=== PATIENT | female | born 1955 | race African-American/Black ===

== ENCOUNTER 2017-04-21 15:07 | Emergency (ER) | payer MEDICARE, OTHER ==
[~2017-04-21] VITALS: Ht 167.6 cm; Wt 62.6 kg
[~2017-04-21 15:07] MED LIST: CATAPRES0.1 MG PO; COMBIVENT RESPIM4 GM IH; DILAUDID2 MG ORAL; IBUPROFEN600 MG ORAL; KADIAN20 MG PO; KADIAN50 MG PO; PREMARIN0.3 MG PO; ROBAXIN-750750 MG PO; SOMA350 MG PO; TRIAMTERENE-HC1 EAC7 ORAL; VALIUM5 MG ORAL; VICODIN ES 7.51 EACH PO; WATER PILL PO; ZESTRIL20 MG PO
[2017-04-21] MEDS ORDERED: Norco 5mg/325mg tab ORAL ONE (15:45)
--- NOTE | 2017-04-21 16:09 | Diagnostic Imaging Report ---
Indication: Chest pain Comparison: None Findings: There is an apparent fracture of the upper sternum. This is probably subacute in age as there is is periosteal new bone present. This is only seen on the lateral view. Impression: Suspected subacute to chronic fracture of the upper sternum.
--- NOTE | 2017-04-21 17:09 | Emergency Room Report ---
History of Present Illness General Chief Complaint: Pain Present Illness HPI 61-year-old female presents to the emergency department complaining of 9/10 in severity sternal pain x1 month. Patient states that she fell and landed directly on her sternum approximately one month ago and has had progressive pain since. Patient reports tenderness denies bruising or deformity. Patient denies past medical history. Patient reports taking a deep breath causes pain. Denies CP, Palpitations, LOC, AMS, dizziness, Changes in Vision, Sensation, paresthesias, or a sudden severe headache. Allergies: Coded Allergies: IODINE (Verified Allergy, Severe, Hives, 08/23/12) IV contrast Patient History Past Medical History: see triage record, COPD Past Surgical History: none Pertinent Family History: none Now: No Immunizations: UTD Reviewed Nursing Documentation: PMH: Agreed, PSxH: Agreed Nursing Documentation-PMH Hx Cardiac Problems: Yes Hx Hypertension: Yes Hx COPD: Yes Hx Cancer: No Hx Gastrointestinal Problems: Yes - Abdominal pain Hx Neurological Problems: No Review of Systems All Other Systems: negative except mentioned in HPI Physical Exam Vital Signs Date Time Temp Pulse Resp B/P (MAP) Pulse Ox O2 Delivery O2 Flow Rate FiO2 04/21/17 15:16 98.2 84 20 120/85 98 Room Air Sp02 EP Interpretation: reviewed, normal General Appearance: no apparent distress, alert, GCS 15, non-toxic Head: normocephalic, atraumatic Eyes: bilateral eye normal inspection, bilateral eye PERRL ENT: hearing grossly normal, normal pharynx, no angioedema, normal voice Neck: full range of motion, supple/symm/no masses Respiratory: lungs clear, normal breath sounds, no wheezing, speaking full sentences, other - sternal TTP Cardiovascular #1: regular rate, rhythm, no edema, normal capillary refill Gastrointestinal: non tender, no guarding Rectal: deferred Genitourinary: normal inspection Musculoskeletal: back normal, gait/station normal, normal range of motion, tender - Sternal TTP Neurologic: alert, oriented x3, responsive, motor strength/tone normal, sensory intact, speech normal Psychiatric: judgement/insight normal, memory normal, mood/affect normal Skin: normal color, no rash, warm/dry, well hydrated Lymphatic: no adenopathy Medical Decision Making PA Attestation Dr. Fernandez is my supervising Physician whom patient management has been discussed with. Diagnostic Impression: Primary Impression: Sternal fracture Qualified Codes: S22.20XA - Unspecified fracture of sternum, initial encounter for closed fracture ER Course 61-year-old female presents to the emergency department complaining of 9/10 in severity sternal pain x1 month. Patient states that she fell and landed directly on her sternum approximately one month ago and has had progressive pain since. Patient reports tenderness denies bruising or deformity. Patient denies past medical history. Patient reports taking a deep breath causes pain. Denies CP, Palpitations, LOC, AMS, dizziness, Changes in Vision, Sensation, paresthesias, or a sudden severe headache. Vital signs: are WNL, pt. is afebrile H&PE are most consistent with musculoskeletal injury will perform imaging to r/ o fractures/dislocations. ORDERS: - X-ray Sternal series 3 views - positive for subacute on chronic proximal sternal fx, no displacement per official radiology report. - EK BPM NSR - no acute ST changes - preliminary review by Dr. Fernandez , his interpretation was scribed by DARRYL Tan ED INTERVENTIONS: - [place] PO -D/w pt. results of her imaging. d/w pt. incentive spirometry, and close outpatient follow up. d/w pt. conservative treatment with incentive spirometer and to follow up with a primary care provider. pt given a list of primary care clinics for follow up. d/w pt. to return to the ED with worsening or new symptoms. DISCHARGE: At this time pt. is stable for d/c to home. Will provide printed patient care instructions, and any necessary prescriptions. Care plan and follow up instructions have been discussed with the patient prior to discharge. Last Vital Signs Date Time Temp Pulse Resp B/P (MAP) Pulse Ox O2 Delivery O2 Flow Rate FiO2 04/21/17 15:16 98.2 84 20 120/85 98 Room Air Disposition: HOME, SELF-CARE Condition: Stable Scripts Lidocaine (Lidoderm) 1 Each Adh..patch 1 PATCH TOPIC Q12HR, #14 PATCH 0 Refills Patch(es) may remain in place for up to 12 hours in any 24-hour period. Prov: Marjorie Tan 04/21/17 Hydrocodone Bit/Acetaminophen 5-325* (NORCO 5-325*) 1 Each Tablet 1 TAB ORAL Q6H Y for For Pain, #10 TAB 0 Refills Prov: Marjorie Tan 04/21/17 Referrals: NON PHYSICIAN (PCP) Patient Instructions: Sternal Fracture Additional Instructions: Take medications as directed. Follow up with a Primary Care Provider in 3-5 days, even if your symptoms have resolved. --Please review list of primary care clinics, if you do not already have a primary care provider Return sooner to ED if new symptoms occur, or current symptoms become worse. Do not drink alcohol, drive, or operate heavy machinery while taking [place] as this may cause drowsiness. - Please note that this Emergency Department Report was dictated using [employer] patrolman technology software, occasionally this can lead to erroneous entry secondary to interpretation by the dictation equipment. Marjorie Tan Apr 21, 2017 17:09
[2017-04-21] MEDS ORDERED: NORCO 5-325 TA1 EACH ORAL (17:10)
[2017-04-21] MEDS ORDERED: LIDODERM700 M1 TOPIC (17:10)
[2017-04-21 17:30] VITALS: BP 118/75
--- NOTE | 2017-04-22 15:29 | Cardiology Report ---
APPROVED REPORT EKG Measurement Heart [id number] Normal sinus rhythm Cannot rule out Anterior infarct, age undetermined Abnormal ECG
== END 2017-04-21 17:40 | disposition home or self-care (01) ==
LOC: EMR 15:52
DX: S22.20XA Unspecified fracture of sternum, initial encounter for closed fracture (principal); W19.XXXA Unspecified fall, initial encounter; Y92.89 Other specified places as the place of occurrence of the external cause; I10 Essential (primary) hypertension; J44.9 Chronic obstructive pulmonary disease, unspecified; Z91.041 Radiographic dye allergy status
CPT/HCPCS: 71120; 93005; 99283

== ENCOUNTER 2017-08-12 21:14 | Emergency (ER) | payer MEDICARE, OTHER ==
[~2017-08-12] VITALS: Ht 167.6 cm; Wt 62.6 kg
[~2017-08-12 21:14] MED LIST changes: +LIDODERM700 M1 TOPIC; +NORCO 5-325 TA1 EACH ORAL
[2017-08-12 21:34] VITALS: BP 177/95
[2017-08-12] MEDS ORDERED: ZOFRAN ODT4 MG ORAL (22:12)
--- NOTE | 2017-08-12 22:13 | Emergency Room Report ---
History of Present Illness General Chief Complaint: Abdominal Pain Source: Patient Present Illness HPI Is a 61-year-old female with history of chronic pain. She seen a pain management already. She presents with chief complaint abdominal cramping vomiting and diarrhea. Onset yesterday. Only one to 2 episode. Her daughter was sick. She was here for couple hours with her granddaughter who had a flulike illness. Patient decided to check in. No other complaint. Most her pain is a left shoulder pain. This is a chronic problem. She just left pain management today. Had an MRI done today. No recent trauma. Allergies: Coded Allergies: IODINE (Verified Allergy, Severe, Hives, 08/23/12) IV contrast Patient History Past Medical History: see triage record, old chart reviewed Past Surgical History: other Pertinent Family History: none Social History: Denies: smoking Last Menstrual Period: NA Now: No Immunizations: other Reviewed Nursing Documentation: PMH: Agreed, PSxH: Agreed Nursing Documentation-PMH Hx Cardiac Problems: Yes Hx Hypertension: Yes Hx COPD: Yes Hx Cancer: No Hx Gastrointestinal Problems: Yes - Abdominal pain Hx Neurological Problems: No - fibromyalgia Review of Systems Eye: Denies: eye pain, blurred vision ENT: Denies: ear pain, nose congestion, throat swelling Respiratory: Denies: cough, shortness of breath Cardiovascular: Denies: chest pain, palpitations Gastrointestinal: Reports: abdominal pain, diarrhea, nausea, vomiting Musculoskeletal: Denies: back pain, joint pain Skin: Denies: rash Neurological: Denies: headache, numbness Endocrine: Denies: increased thirst, increased urine Hematologic/Lymphatic: Denies: easy bruising All Other Systems: negative except mentioned in HPI Physical Exam Vital Signs Date Time Temp Pulse Resp B/P (MAP) Pulse Ox O2 Delivery O2 Flow Rate FiO2 08/12/17 21:30 97.9 99 18 177/95 98 Room Air vitals with high blood pressure Sp02 EP Interpretation: reviewed, normal General Appearance: well appearing, no apparent distress, alert Head: normocephalic, atraumatic Eyes: bilateral eye PERRL, bilateral eye EOMI ENT: hearing grossly normal, normal pharynx Neck: full range of motion, supple, no meningismus Respiratory: chest non-tender, lungs clear, normal breath sounds Cardiovascular #1: regular rate, rhythm, no murmur Gastrointestinal: normal bowel sounds, non tender, no mass, no organomegaly, no bruit, non-distended Musculoskeletal: back normal, gait/station normal, normal range of motion Psychiatric: mood/affect normal Skin: warm/dry Medical Decision Making Diagnostic Impression: Primary Impression: HTN (hypertension) Qualified Codes: I10 - Essential (primary) hypertension Additional Impression: Abdominal pain Qualified Codes: R10.84 - Generalized abdominal pain ER Course Is in with abdominal pain and nausea, vomiting, diarrhea. Looks well. Notice of acute abdomen. No evidence of obstruction. We'll discharge home. Last Vital Signs Date Time Temp Pulse Resp B/P (MAP) Pulse Ox O2 Delivery O2 Flow Rate FiO2 08/12/17 21:30 97.9 99 18 177/95 98 Room Air Status: improved Disposition: HOME, SELF-CARE Condition: Stable Scripts Ondansetron Odt* (ZOFRAN ODT*) 4 Mg Tab.rapdis 4 MG ORAL Q6H Y for Nausea & Vomiting, #10 TAB 0 Refills Prov: MICHELE ORTIZ M.D. 08/12/17 Patient Instructions: Abdominal Pain, Adult Additional Instructions: Followup with your DrBelen in 2-3 days. Take her pain medication as needed. Return to worse. MICHELE ORTIZ M.D. Aug 12, 2017 22:13
== END 2017-08-12 22:50 | disposition home or self-care (01) ==
LOC: EMR 21:50
DX: R10.9 Unspecified abdominal pain (principal); I10 Essential (primary) hypertension; R11.2 Nausea with vomiting, unspecified; R19.7 Diarrhea, unspecified; J44.9 Chronic obstructive pulmonary disease, unspecified
CPT/HCPCS: 99283

== ENCOUNTER 2017-11-10 16:16 | Emergency (ER) | payer MEDICARE, OTHER ==
[~2017-11-10] VITALS: Ht 170.2 cm; Wt 63.0 kg
[~2017-11-10 16:16] MED LIST changes: +ZOFRAN ODT4 MG ORAL
[2017-11-10 17:20] VITALS: BP 120/90
[2017-11-10 17:21] VITALS: BP 120/90
--- NOTE | 2017-11-10 20:01 | Emergency Room Report ---
History of Present Illness General Chief Complaint: Multiple Trauma/Fall Source: Patient Present Illness HPI 61-year-old female no significant past medical history presenting with mechanical fall. Patient states that she tripped and fell onto her left face. There is no LOC. Her niece came immediately to her. No nausea vomiting since the incident. No blurry vision. Sustained ecchymosis to her left face. Also with right finger pain Allergies: Coded Allergies: IODINE (Verified Allergy, Severe, Hives, 08/23/12) IV contrast Patient History Past Medical History: see triage record Past Surgical History: none Pertinent Family History: none Reviewed Nursing Documentation: PMH: Agreed; PSxH: Agreed Nursing Documentation-PMH Past Medical History: No History, Except For Hx Cardiac Problems: Yes Hx Hypertension: Yes Hx COPD: Yes Hx Cancer: No Hx Gastrointestinal Problems: Yes - Abdominal pain Hx Neurological Problems: No - fibromyalgia Review of Systems All Other Systems: negative except mentioned in HPI Physical Exam Vital Signs Date Time Temp Pulse Resp B/P (MAP) Pulse Ox O2 Delivery O2 Flow Rate FiO2 11/10/17 16:20 98.3 109 18 132/91 95 Room Air 98.2 Sp02 EP Interpretation: reviewed, normal General Appearance: normal inspection, well appearing, no apparent distress, alert, GCS 15, non-toxic Head: normocephalic - Ecchymosis noted to left forehead, non-boggy hematoma Eyes: bilateral eye normal inspection, bilateral eye PERRL, bilateral eye EOMI ENT: normal ENT inspection, normal pharynx, normal voice, moist mucus membranes Neck: normal inspection, full range of motion, supple Respiratory: normal inspection, lungs clear, normal breath sounds, no respiratory distress, no retraction, no wheezing, speaking full sentences, chest symmetrical Cardiovascular #1: normal inspection, regular rate, rhythm, normal capillary refill Cardiovascular #2: 2+ radial (R), 2+ radial (L) Gastrointestinal: normal inspection, non tender, soft, non-distended, no guarding Musculoskeletal: back normal, other - Right middle finger with ecchymosis and edema noted to PIP and DIP with limited range of motion, no other traumatic injuries Neurologic: normal inspection, alert, oriented x3, responsive, motor strength/ tone normal, sensory intact, normal gait, speech normal Psychiatric: normal inspection, judgement/insight normal, memory normal Skin: normal inspection, normal color, no rash, warm/dry, well hydrated, normal turgor Medical Decision Making Diagnostic Impression: Primary Impression: Head injury Additional Impressions: Fall Finger contusion ER Course 61-year-old female mechanical fall. Now with right middle finger pain DDX: Close head injury, very low suspicion for acute intracranial hemorrhage given no LOC, no neurological signs or symptoms. Rule out right middle finger contusion versus fracture Plan: Patient control, right hand x-ray ER course: Patient has remained stable during ED stay. Had x-ray appears to be negative however patient has pain that is significant at PIP and DIP, placed in a finger splint Disposition: Patient is to be discharged to home. Patient is instructed to follow up with their primary care doctor and orthopedic within 5 days. Please note that this Emergency Department Report was dictated using [employer] Entertainmentdocument control associate technology software, occasionally this can lead to erroneous entry secondary to interpretation by the dictation equipment Xray: Right hand Complete Indication: Pain EP Interpretation: Yes Interpretation: No dislocation, no soft tissue swelling, no fractures Impression: No acute disease Electronically signed by Lisa Young MD Last Vital Signs Date Time Temp Pulse Resp B/P (MAP) Pulse Ox O2 Delivery O2 Flow Rate FiO2 11/10/17 17:21 98.3 100 17 120/90 95 Room Air 98.3 Disposition: HOME, SELF-CARE Condition: Improved Referrals: NOT CHOSEN LAURA/,REFERRING (PCP) Patient Instructions: Finger Sprain, [id number], Contusion, [id number], Head Injury, Adult, [id number] Additional Instructions: Please see your PCP in one week without fail. Please see an orthopedic doctor in one week Lisa Young M.D. November 10, 2017 20:01
--- NOTE | 2017-11-11 11:38 | Diagnostic Imaging Report ---
Indication: Pain Technique: XRAY Hand Complete R Comparison: None Findings: There is no evidence of acute fracture or dislocation. There are mild degenerative changes at the distal interphalangeal joints, most pronounced at the fourth DIP joint. No radiopaque foreign body seen. IMPRESSION: No evidence of acute fracture or dislocation. 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 Inflammatory arthritides are thought less likely. Correlate clinically.
== END 2017-11-10 18:00 | disposition home or self-care (01) ==
LOC: EMR 17:23
DX: S00.83XA Contusion of other part of head, initial encounter (principal); S60.031A Contusion of right middle finger without damage to nail, initial encounter; W00.0XXA Fall on same level due to ice and snow, initial encounter; Y92.9 Unspecified place or not applicable; Z91.041 Radiographic dye allergy status; I10 Essential (primary) hypertension; J44.9 Chronic obstructive pulmonary disease, unspecified
CPT/HCPCS: 99283

== ENCOUNTER 2018-12-15 13:47 | Emergency (ER) | payer MEDICARE, OTHER ==
[~2018-12-15] VITALS: Ht 160 cm; Wt 59.0 kg
[2018-12-15] MEDS ORDERED: HYDROCHLOROTH12.5 M2 ORAL (14:01)
[2018-12-15] MEDS ORDERED: OXYCONTIN20 MG ORAL (14:01)
--- NOTE | 2018-12-15 14:12 | Emergency Room Report ---
History of Present Illness General Chief Complaint: Pain Source: Medical Record Present Illness HPI 63-year-old female with no significant past medical history other than high blood pressure is controlled with medication here complaining of shooting pain starting in the right buttocks and going all the way down her right leg x1 day. Patient reports that she was doing heavy lifting did not fall nor injured herself. Patient reports that the pain is worse when she is sitting down or when she is about to stand up however when she is walking she feels better. Patient is currently on oxycodone and gets prescription monthly of oxycodone and currently has enough left for the remaining of this month. Patient is rating her pain 10 out of 10 with radiation denying tingling and numbness. Patient denies chest pain, shortness of breath, palpitation, headache dizziness and reports that she has not taken her blood pressure medication today and her blood pressure is elevated. Denies urinary and bowel incontinence denies saddle paresthesia. Allergies: Coded Allergies: IODINE (Verified Allergy, Severe, Hives, 08/23/12) IV contrast Patient History Past Medical History: see triage record Past Surgical History: unable to obtain Pertinent Family History: none Now: No Immunizations: UTD Reviewed Nursing Documentation: PMH: Agreed; PSxH: Agreed Nursing Documentation-PMH Past Medical History: No History, Except For Hx Cardiac Problems: Yes - Fibromyalgia Hx Hypertension: Yes Hx Pacemaker: No Hx Asthma: No Hx COPD: Yes Hx Diabetes: No Hx Cancer: No Hx Gastrointestinal Problems: Yes Hx Dialysis: No History Of Psychiatric Problem: No Hx Neurological Problems: No Hx Cerebrovascular Accident: No Hx Seizures: No Review of Systems All Other Systems: negative except mentioned in HPI Physical Exam Vital Signs Date Time Temp Pulse Resp B/P (MAP) Pulse Ox O2 Delivery O2 Flow Rate FiO2 12/15/18 13:55 97.9 94 16 177/79 (111) 96 Room Air Sp02 EP Interpretation: reviewed, normal General Appearance: well appearing, alert, GCS 15, mild distress Head: normocephalic, atraumatic Eyes: bilateral eye normal inspection, bilateral eye PERRL ENT: normal ENT inspection Neck: normal inspection, full range of motion, supple Respiratory: normal inspection, chest non-tender, lungs clear, no wheezing Cardiovascular #1: normal inspection, normal peripheral pulses, regular rate, rhythm, no murmur, normal capillary refill Cardiovascular #2: 2+ dorsalis pedis (R), 2+ dorsalis pedis (L) Gastrointestinal: normal inspection, soft Rectal: deferred Genitourinary: no CVA tenderness Musculoskeletal: no calf tenderness, other - pos right straight leg test Neurologic: normal inspection, alert, oriented x3, responsive Psychiatric: normal inspection, judgement/insight normal Skin: normal inspection, normal color, no rash, warm/dry Lymphatic: normal inspection, no adenopathy Medical Decision Making PA Attestation All my diagnosis and treatment plans were reviewed ad discussed with my supervising physician Dr. Faustin Diagnostic Impression: Primary Impression: Sciatic leg pain ER Course 63-year-old female with no significant past medical history other than high blood pressure is controlled with medication here complaining of shooting pain starting in the right buttocks and going all the way down her right leg x1 day. Patient reports that she was doing heavy lifting did not fall nor injured herself. Patient reports that the pain is worse when she is sitting down or when she is about to stand up however when she is walking she feels better. Patient is currently on oxycodone and gets prescription monthly of oxycodone and currently has enough left for the remaining of this month. Patient is rating her pain 10 out of 10 with radiation denying tingling and numbness. Patient denies chest pain, shortness of breath, palpitation, headache dizziness and reports that she has not taken her blood pressure medication today and her blood pressure is elevated. Denies urinary and bowel incontinence denies saddle paresthesia. Ddx considered but are not limited to: Right sciatic leg pain, right hip fracture, right hip strain Vital signs: are WNL, pt. is afebrile H&PE are most consistent with: Right sciatic leg pain ORDERS: No x-ray necessary, Toradol IM given today, naproxen and Robaxin ED INTERVENTIONS: Toradol IM DISCHARGE: At this time pt. is stable for d/c to home. Will provide printed patient care instructions, and any necessary prescriptions. Care plan and follow up instructions have been discussed with the patient prior to discharge. Patient later reports that she cannot take naproxen and I told her that she does not have to take naproxen continue with Robaxin and since she is currently on oxycodone no more pain medication can be given patient agrees to follow-up with pain management. Last Vital Signs Date Time Temp Pulse Resp B/P (MAP) Pulse Ox O2 Delivery O2 Flow Rate FiO2 12/15/18 13:55 97.9 94 16 177/79 (111) 96 Room Air Disposition: HOME, SELF-CARE Condition: Stable Scripts Methocarbamol* (ROBAXIN*) 500 Mg Tablet 500 MG PO TID, #15 TAB 0 Refills Prov: Jorge A Brown 12/15/18 Naproxen* (NAPROXEN*) 500 Mg Tablet 500 MG ORAL TWICE A DAY, #14 TAB Prov: Jorge A Brown 12/15/18 Patient Instructions: Sciatica, [id number] Additional Instructions: Follow-up with a primary care provider and your pain management doctor as you are currently on oxycodone you have enough quantity until the beginning of January. Take Robaxin as directed and naproxen with food avoid strenuous physical activity at this point you need to see your pain management doctor for more pain medication Jorge A Brown Dec 15, 2018 14:12
[2018-12-15] MEDS ORDERED: NAPROXEN500 M2 ORAL (14:13)
[2018-12-15] MEDS ORDERED: ROBAXIN500 MG PO (14:13)
[2018-12-15] MEDS ORDERED: Ketorolac 30mg Inj IM ONE (14:15)
[2018-12-15 14:32] VITALS: BP 168/72
== END 2018-12-15 14:35 | disposition home or self-care (01) ==
LOC: EMR 14:25
DX: M54.31 Sciatica, right side (principal); Z91.041 Radiographic dye allergy status; M79.7 Fibromyalgia; I10 Essential (primary) hypertension; J44.9 Chronic obstructive pulmonary disease, unspecified
CPT/HCPCS: 96372; 99283; J1885